=== PATIENT | female | born 1950 | race Caucasian/White ===

== ENCOUNTER 2016-11-11 08:35 | Outpatient (CLI) | payer BC, MEDICARE ==
[2016-11-11 12:39] LABS: #Basophils 0.1 thou/uL (0.0-0.2); #Eosinphils 0.1 thou/uL (0.0-0.7); #Monocytes 0.3 thou/uL (0.11-0.59); #Neutrophils 2.4 thou/uL (1.40-6.50); %Basophils 1.3 % (0.0-1.0); %Eosinophils 2.4 % (0.0-10.0); %Lymphocytes 41.2 % (21.0-51.0); %Monocytes 6.1 % (0.0-10.0); Hematocrit 41.1 % (36.0-47.0); Mean Platelet Volume 5.8 fL (7.4-10.4); Red Blood Cell (RBC) Count 4.21 mill/uL (4.20-5.40); White Blood Cell (WBC) Count 4.9 thou/uL (4.8-10.8)
[2016-11-11 12:50] LABS: ALT (SGPT) 34 U/L (0-55); AST (SGOT) 55 U/L (5-34); Alkaline Phosphatase 61 U/L (40-150); Anion Gap 16 mmol/L (10-20); BUN (Urea Nitrogen) 14 mg/dL (9.8-20.1); Bilirubin, Total 0.4 mg/dL (0.2-1.2); Calc. Creatinine Clearance 0 mL/min (70-130); Calcium 9.4 mg/dL (7.8-10.44); Carbon Dioxide 24 mmol/L (23-31); Chloride 100 mmol/L (98-107); Estimated GFR-MDRD 54; Globulin 2.8 g/dL (2.4-3.5); LDL Cholesterol, Calculated 325 mg/dL; Protein, Total 7.6 g/dL (5.8-8.1)
== END 2016-11-11 08:36 ==
LOC: NAVSJIPCSP 08:35
PROVIDERS: ATTEND Family Medicine
DX: I10 Essential (primary) hypertension (principal); R53.83 Other fatigue
CPT/HCPCS: 36415; 80053; 80061; 84443; 85025

== ENCOUNTER 2021-01-10 13:59 | Inpatient (IN) | payer MEDICARE, BC ==
[2021-01-10] MEDS ORDERED: Cepastat Lozenges 1 LOZ PO PRN ×2 (15:10→15:25)
[2021-01-10] MEDS ORDERED: Acetaminophen 325 MG TAB PO PRN ×2 (15:10→15:21)
[2021-01-10] MEDS ORDERED: diphenhydrAMINE 25 MG CAP PO PRN (15:11)
[2021-01-10] MEDS: HYDROcodone/Acetaminophen 7.5/325 mg Tablet PO PRN ×2 (15:20→19:21)
[2021-01-10] MEDS ORDERED: Ondansetron ODT 4 MG TAB PO PRN (15:21)
[2021-01-10] MEDS ORDERED: HYDROcodone/Acetaminophen 7.5/325 mg Tablet PO PRN ×2 (15:25)
[2021-01-10] MEDS ORDERED: Non-Formulary Item 1 EACH (Acetaminophen [Tylenol] 325 MG Capsule) PO PRN (15:25)
[2021-01-10 16:24] LABS: #Basophils 0.1 thou/uL (0.0-0.2); #Eosinphils 0.1 thou/uL (0.0-0.7); #Lymphocytes 2.3 thou/uL (1.20-3.40); #Monocytes 0.7 thou/uL (0.11-0.59); #Neutrophils 5.2 thou/uL (1.40-6.50); %Basophils 0.7 % (0.0-1.0); %Eosinophils 1.5 % (0.0-10.0); %Lymphocytes 27.9 % (21.0-51.0); %Monocytes 7.9 % (0.0-10.0); %Neutrophils 62.1 % (42.0-75.0); Hemoglobin 10.6 g/dL (12.0-16.0); Mean Corpuscular HGB CONC 30.8 g/dL (32.0-36.0); Mean Corpuscular Hemoglobin 30.6 pg (27.0-31.0); Mean Corpuscular Volume 99.5 fL (78.0-98.0); Mean Platelet Volume 7.6 fL (7.4-10.4); Platelet Count 300 thou/uL (130-400); RBC Distribution Width 12.2 % (11.5-14.5); Red Blood Cell (RBC) Count 3.45 mill/uL (4.20-5.40); White Blood Cell (WBC) Count 8.4 thou/uL (4.8-10.8)
[2021-01-10 16:41] LABS: Anion Gap 12 mmol/L (10-20); BUN (Urea Nitrogen) 11 mg/dL (9.8-20.1); Calc. Creatinine Clearance 108 mL/min (70-130); Calcium 8.7 mg/dL (7.8-10.44); Carbon Dioxide 27 mmol/L (23-31); Chloride 104 mmol/L (98-107); Glucose 92 mg/dL (80-115); Potassium 4.4 mmol/L (3.5-5.1); Sodium 139 mmol/L (136-145)
[2021-01-10] MEDS ORDERED: diphenhydrAMINE 25 MG CAP PO SCH (18:00)
[2021-01-10] MEDS: Rosuvastatin 10 MG TAB PO SCH (20:44)
[2021-01-10] MEDS: Docusate 100 MG CAP PO SCH (20:47)
[2021-01-10] MEDS: Aspirin 81 mg Enteric Coated Tablet PO SCH (20:47)
[2021-01-10] MEDS: cycloSPORINE 0.05% Ophthalmic Droperette EA EYE SCH (20:49)
[2021-01-10] MEDS: Milk Of Magnesia 30 ML UDCUP PO SCH (20:59)
[2021-01-10] MEDS ORDERED: Docusate 100 MG CAP PO SCH (21:00)
[2021-01-10] MEDS ORDERED: Lisinopril 10 MG TAB PO SCH (21:00)
[2021-01-10] MEDS ORDERED: Levothyroxine Sodium 112 MCG TAB PO SCH (21:00)
[2021-01-10] MEDS ORDERED: Aspirin 81 mg Enteric Coated Tablet PO SCH (21:00)
[2021-01-10] MEDS ORDERED: Milk Of Magnesia 30 ML UDCUP PO SCH (21:00)
[2021-01-10] MEDS ORDERED: cycloSPORINE 0.05% Ophthalmic Droperette EA EYE SCH (21:00)
[2021-01-10] MEDS ORDERED: ROSUVASTATIN 5 MG PO SCH (21:00)
[2021-01-10] MEDS ORDERED: Lisinopril 5 MG TAB PO SCH (21:00)
[2021-01-11] MEDS: HYDROcodone/Acetaminophen 7.5/325 mg Tablet PO PRN ×5 (00:42→20:21)
[2021-01-11] MEDS: Levothyroxine Sodium 112 MCG TAB PO SCH (05:31)
[2021-01-11] MEDS: Enoxaparin Sodium 40 MG/0.4 ML SYRINGE SC SCH (08:59)
[2021-01-11] MEDS: Docusate 100 MG CAP PO SCH ×2 (08:59→20:23)
[2021-01-11] MEDS: Aspirin 81 mg Enteric Coated Tablet PO SCH ×2 (08:59→20:24)
[2021-01-11] MEDS: Milk Of Magnesia 30 ML UDCUP PO SCH ×2 (09:00→20:23)
[2021-01-11] MEDS ORDERED: [UNRECOGNIZED DRUG - OTHER] PO SCH (09:00)
[2021-01-11] MEDS: Multivitamin W/ Minerals 1 TAB PO SCH (09:00)
[2021-01-11] MEDS: cycloSPORINE 0.05% Ophthalmic Droperette EA EYE SCH ×2 (09:00→20:20)
[2021-01-11] MEDS: Rosuvastatin 10 MG TAB PO SCH (20:23)
[2021-01-11] MEDS ORDERED: Lisinopril 10 MG TAB PO SCH (21:00)
[2021-01-11] MEDS: Lisinopril 5 MG TAB PO SCH (21:35)
[2021-01-12] MEDS: HYDROcodone/Acetaminophen 7.5/325 mg Tablet PO PRN ×6 (00:12→20:34)
[2021-01-12] MEDS: Levothyroxine Sodium 112 MCG TAB PO SCH (06:12)
[2021-01-12] MEDS: Docusate 100 MG CAP PO SCH ×2 (08:18→20:35)
[2021-01-12] MEDS: Enoxaparin Sodium 40 MG/0.4 ML SYRINGE SC SCH (08:18)
[2021-01-12] MEDS: Aspirin 81 mg Enteric Coated Tablet PO SCH ×2 (08:18→20:35)
[2021-01-12] MEDS: Multivitamin W/ Minerals 1 TAB PO SCH (08:19)
[2021-01-12] MEDS: cycloSPORINE 0.05% Ophthalmic Droperette EA EYE SCH ×2 (08:19→20:34)
[2021-01-12] MEDS: Milk Of Magnesia 30 ML UDCUP PO SCH ×2 (08:19→20:05)
[2021-01-12] MEDS ORDERED: Magnesium Citrate 300 ML BOT PO SCH (09:15)
[2021-01-12] MEDS: Rosuvastatin 10 MG TAB PO SCH (20:35)
[2021-01-12] MEDS: Lisinopril 5 MG TAB PO SCH (20:35)
[2021-01-13] MEDS: HYDROcodone/Acetaminophen 7.5/325 mg Tablet PO PRN ×6 (01:03→22:17)
[2021-01-13] MEDS: Levothyroxine Sodium 112 MCG TAB PO SCH (05:06)
[2021-01-13] MEDS: Milk Of Magnesia 30 ML UDCUP PO SCH ×2 (08:26→20:30)
[2021-01-13] MEDS: Docusate 100 MG CAP PO SCH ×2 (08:27→20:25)
[2021-01-13] MEDS: Multivitamin W/ Minerals 1 TAB PO SCH (08:27)
[2021-01-13] MEDS: Enoxaparin Sodium 40 MG/0.4 ML SYRINGE SC SCH (08:27)
[2021-01-13] MEDS: Aspirin 81 mg Enteric Coated Tablet PO SCH ×2 (08:27→20:26)
[2021-01-13] MEDS: cycloSPORINE 0.05% Ophthalmic Droperette EA EYE SCH ×2 (10:22→20:36)
[2021-01-13 11:53] VITALS: BMI 27.8
[2021-01-13] MEDS: traMADol HCl 50 MG TAB PO PRN (16:24)
[2021-01-13] MEDS: Lisinopril 5 MG TAB PO SCH (20:25)
[2021-01-13] MEDS: Rosuvastatin 10 MG TAB PO SCH (20:26)
[2021-01-14] MEDS: traMADol HCl 50 MG TAB PO PRN ×4 (00:41→23:11)
[2021-01-14] MEDS: HYDROcodone/Acetaminophen 7.5/325 mg Tablet PO PRN ×5 (03:18→23:10)
[2021-01-14] MEDS: Levothyroxine Sodium 112 MCG TAB PO SCH (05:56)
[2021-01-14] MEDS: Enoxaparin Sodium 40 MG/0.4 ML SYRINGE SC SCH (07:55)
[2021-01-14] MEDS: Multivitamin W/ Minerals 1 TAB PO SCH (07:55)
[2021-01-14] MEDS: Docusate 100 MG CAP PO SCH ×2 (07:56→20:25)
[2021-01-14] MEDS: Aspirin 81 mg Enteric Coated Tablet PO SCH ×2 (07:56→20:25)
[2021-01-14] MEDS: cycloSPORINE 0.05% Ophthalmic Droperette EA EYE SCH ×2 (07:58→22:19)
[2021-01-14] MEDS: Milk Of Magnesia 30 ML UDCUP PO SCH ×2 (07:59→22:12)
[2021-01-14] MEDS ORDERED: Ondansetron ODT 4 MG TAB SL PRN (09:15)
[2021-01-14] MEDS: Rosuvastatin 10 MG TAB PO SCH (20:25)
[2021-01-14] MEDS: Lisinopril 5 MG TAB PO SCH (20:25)
[2021-01-15] MEDS: HYDROcodone/Acetaminophen 7.5/325 mg Tablet PO PRN ×4 (03:35→20:28)
[2021-01-15] MEDS: traMADol HCl 50 MG TAB PO PRN ×3 (05:40→18:39)
[2021-01-15] MEDS: Levothyroxine Sodium 112 MCG TAB PO SCH (05:41)
[2021-01-15] MEDS: cycloSPORINE 0.05% Ophthalmic Droperette EA EYE SCH ×3 (08:54→20:35)
[2021-01-15] MEDS: Docusate 100 MG CAP PO SCH ×2 (08:54→20:26)
[2021-01-15] MEDS: Aspirin 81 mg Enteric Coated Tablet PO SCH ×2 (08:54→20:26)
[2021-01-15] MEDS: Milk Of Magnesia 30 ML UDCUP PO SCH ×2 (08:55→20:30)
[2021-01-15] MEDS: Multivitamin W/ Minerals 1 TAB PO SCH (08:55)
[2021-01-15] MEDS: Rosuvastatin 10 MG TAB PO SCH (20:26)
[2021-01-15] MEDS: Lisinopril 5 MG TAB PO SCH (20:27)
[2021-01-16] MEDS: HYDROcodone/Acetaminophen 7.5/325 mg Tablet PO PRN ×6 (00:08→20:53)
[2021-01-16] MEDS: traMADol HCl 50 MG TAB PO PRN ×4 (00:12→20:04)
[2021-01-16] MEDS: Levothyroxine Sodium 112 MCG TAB PO SCH (06:06)
[2021-01-16] MEDS: Multivitamin W/ Minerals 1 TAB PO SCH (08:05)
[2021-01-16] MEDS: Docusate 100 MG CAP PO SCH ×2 (08:05→20:05)
[2021-01-16] MEDS: Aspirin 81 mg Enteric Coated Tablet PO SCH ×2 (08:05→20:07)
[2021-01-16] MEDS: Milk Of Magnesia 30 ML UDCUP PO SCH ×2 (08:05→20:04)
[2021-01-16] MEDS: cycloSPORINE 0.05% Ophthalmic Droperette EA EYE SCH ×2 (08:06→20:08)
[2021-01-16] MEDS: Rosuvastatin 10 MG TAB PO SCH (20:02)
[2021-01-16] MEDS: Lisinopril 5 MG TAB PO SCH (20:05)
[2021-01-17] MEDS: HYDROcodone/Acetaminophen 7.5/325 mg Tablet PO PRN ×3 (01:08→10:36)
[2021-01-17] MEDS: Levothyroxine Sodium 112 MCG TAB PO SCH (05:13)
[2021-01-17] MEDS: traMADol HCl 50 MG TAB PO PRN (08:50)
[2021-01-17] MEDS: Milk Of Magnesia 30 ML UDCUP PO SCH (08:53)
[2021-01-17] MEDS: Aspirin 81 mg Enteric Coated Tablet PO SCH (08:53)
[2021-01-17] MEDS: Docusate 100 MG CAP PO SCH (08:54)
[2021-01-17] MEDS: Multivitamin W/ Minerals 1 TAB PO SCH (08:54)
[2021-01-17] MEDS: cycloSPORINE 0.05% Ophthalmic Droperette EA EYE SCH (08:57)
[2021-01-17 13:54] VITALS: BP 120/62; TEMP 97
== END 2021-01-17 13:15 | disposition home or self-care (01) | DRG 561 ==
LOC: NAV ACUTE 13:59
PROVIDERS: ADMIT Internal Medicine; ATTEND Internal Medicine
DX: Z47.1 Aftercare following joint replacement surgery (principal); E03.9 Hypothyroidism, unspecified; I10 Essential (primary) hypertension; E78.5 Hyperlipidemia, unspecified; K59.00 Constipation, unspecified
CPT/HCPCS: 80048; 85025; J1650

== ENCOUNTER 2023-04-28 13:44 | Outpatient (CLI) | payer MEDICARE, BC ==
[2023-04-28 14:07] LABS: #Basophils 0.1 thou/uL (0.0-0.2); #Eosinphils 0.3 thou/uL (0.0-0.7); #Lymphocytes 1.7 thou/uL (1.20-3.40); #Monocytes 0.4 thou/uL (0.11-0.59); #Neutrophils 3.3 thou/uL (1.40-6.50); %Basophils 1.2 % (0.0-1.0); %Eosinophils 5.7 % (0.0-10.0); %Lymphocytes 29.4 % (21.0-51.0); %Monocytes 7.4 % (0.0-10.0); %Neutrophils 56.4 % (42.0-75.0); Hematocrit 34.3 % (36.0-47.0); Hemoglobin 11.4 g/dL (12.0-16.0); Mean Corpuscular HGB CONC 33.2 g/dL (32.0-36.0); Mean Corpuscular Hemoglobin 31.4 pg (27.0-31.0); Mean Corpuscular Volume 94.8 fl (78.0-98.0); Platelet Count 310 10x3/uL (130-400); RBC Distribution Width 11.8 % (11.5-14.5); Red Blood Cell (RBC) Count 3.62 mill/uL (4.20-5.40); White Blood Cell (WBC) Count 5.8 10x3/uL (4.8-10.8)
[2023-04-28 14:14] LABS: ALT (SGPT) 9 U/L (8-55); AST (SGOT) 21 U/L (5-34); Alkaline Phosphatase 78 U/L (40-110); Anion Gap 16 mmol/L (10-20); BUN (Urea Nitrogen) 24 mg/dL (9.8-20.1); Bilirubin, Total 0.2 mg/dL (0.2-1.2); CRP (Inflammatory) Less than 0.50 mg/dL (= or < 0.5); Calc. Creatinine Clearance 0 mL/min (70-130); Calcium 9.2 mg/dL (7.8-10.44); Carbon Dioxide 24 mmol/L (23-31); Chloride 98 mmol/L (98-107); Estimated GFR 91; Globulin 2.5 g/dL (2.4-3.5); Glucose 86 mg/dL (83-110); Potassium 4.7 mmol/L (3.5-5.1); Protein, Total 6.5 g/dL (5.8-8.1); Sodium 133 mmol/L (136-145)
== END 2023-04-28 13:45 | disposition home or self-care (01) ==
LOC: NAV LABSP 13:44
PROVIDERS: ATTEND Internal Medicine
DX: M00.872 Arthritis due to other bacteria, left ankle and foot (principal); T84.69XA Infection and inflammatory reaction due to internal fixation device of other site, initial encounter
CPT/HCPCS: 36415; 80053; 85025; 86140

== ENCOUNTER 2023-05-05 11:51 | Outpatient (CLI) | payer MEDICARE, BC ==
[2023-05-05 12:26] LABS: #Eosinphils 0.2 thou/uL (0.0-0.7); #Lymphocytes 1.3 thou/uL (1.20-3.40); #Monocytes 0.3 thou/uL (0.11-0.59); #Neutrophils 2.4 thou/uL (1.40-6.50); %Basophils 1.1 % (0.0-1.0); %Eosinophils 5.6 % (0.0-10.0); %Lymphocytes 30.4 % (21.0-51.0); %Monocytes 7.3 % (0.0-10.0); %Neutrophils 55.7 % (42.0-75.0); ALT (SGPT) Less than 7 U/L (8-55); AST (SGOT) 15 U/L (5-34); Albumin 4.2 g/dL (3.4-4.8); Alkaline Phosphatase 71 U/L (40-110); Anion Gap 14 mmol/L (10-20); BUN (Urea Nitrogen) 24 mg/dL (9.8-20.1); Bilirubin, Total 0.2 mg/dL (0.2-1.2); CRP (Inflammatory) Less than 0.50 mg/dL (= or < 0.5); Calc. Creatinine Clearance 0 mL/min (70-130); Calcium 9.3 mg/dL (7.8-10.44); Carbon Dioxide 23 mmol/L (23-31); Chloride 99 mmol/L (98-107); Estimated GFR 82; Globulin 2.3 g/dL (2.4-3.5); Glucose 124 mg/dL (83-110); Hemoglobin 11.2 g/dL (12.0-16.0); Mean Corpuscular HGB CONC 32.9 g/dL (32.0-36.0); Mean Corpuscular Hemoglobin 31.5 pg (27.0-31.0); Mean Corpuscular Volume 95.7 fl (78.0-98.0); Mean Platelet Volume 6.4 fL (7.4-10.4); Platelet Count 296 10x3/uL (130-400); Potassium 4.8 mmol/L (3.5-5.1); Protein, Total 6.5 g/dL (5.8-8.1); RBC Distribution Width 11.5 % (11.5-14.5); Red Blood Cell (RBC) Count 3.56 mill/uL (4.20-5.40); Sodium 131 mmol/L (136-145); White Blood Cell (WBC) Count 4.3 10x3/uL (4.8-10.8)
[2023-05-05 13:53] LABS: Follow-up Chemistry Comp? YES; Follow-up Hematology Comp? YES; Follow-up Result - Chemistry REPORT FAXED; Follow-up Result - Hematology REPORT FAXED
== END 2023-05-05 11:52 | disposition home or self-care (01) ==
LOC: NAV LABSP 11:51
PROVIDERS: ATTEND Internal Medicine
DX: T84.69XA Infection and inflammatory reaction due to internal fixation device of other site, initial encounter (principal); N18.1 Chronic kidney disease, stage 1; B95.61 Methicillin susceptible Staphylococcus aureus infection as the cause of diseases classified elsewhere; M00.872 Arthritis due to other bacteria, left ankle and foot
CPT/HCPCS: 80053; 85025; 86140

== ENCOUNTER 2023-05-12 16:16 | Outpatient (CLI) | payer MEDICARE, BC ==
[2023-05-12 17:24] LABS: #Basophils 0.1 thou/uL (0.0-0.2); #Eosinphils 0.2 thou/uL (0.0-0.7); #Lymphocytes 1.2 thou/uL (1.20-3.40); #Monocytes 0.4 thou/uL (0.11-0.59); #Neutrophils 1.6 thou/uL (1.40-6.50); %Basophils 2.2 % (0.0-1.0); %Eosinophils 5.8 % (0.0-10.0); %Lymphocytes 34.7 % (21.0-51.0); %Monocytes 10.5 % (0.0-10.0); %Neutrophils 46.8 % (42.0-75.0); Hematocrit 32.1 % (36.0-47.0); Hemoglobin 10.6 g/dL (12.0-16.0); Mean Corpuscular HGB CONC 33.1 g/dL (32.0-36.0); Mean Corpuscular Hemoglobin 31.2 pg (27.0-31.0); Mean Corpuscular Volume 94.3 fl (78.0-98.0); Platelet Count 305 10x3/uL (130-400); RBC Distribution Width 11.3 % (11.5-14.5); Red Blood Cell (RBC) Count 3.41 mill/uL (4.20-5.40); White Blood Cell (WBC) Count 3.5 10x3/uL (4.8-10.8)
[2023-05-12 17:40] LABS: ALT (SGPT) Less than 7 U/L (8-55); AST (SGOT) 16 U/L (5-34); Albumin 4.1 g/dL (3.4-4.8); Alkaline Phosphatase 63 U/L (40-110); Anion Gap 13 mmol/L (10-20); BUN (Urea Nitrogen) 17 mg/dL (9.8-20.1); Bilirubin, Total 0.2 mg/dL (0.2-1.2); CRP (Inflammatory) Less than 0.50 mg/dL (= or < 0.5); Calc. Creatinine Clearance 0 mL/min (70-130); Carbon Dioxide 25 mmol/L (23-31); Chloride 94 mmol/L (98-107); Estimated GFR 89; Globulin 2.2 g/dL (2.4-3.5); Glucose 149 mg/dL (83-110); Potassium 4.2 mmol/L (3.5-5.1); Protein, Total 6.3 g/dL (5.8-8.1); Sodium 128 mmol/L (136-145)
== END 2023-05-12 16:17 | disposition home or self-care (01) ==
LOC: NAV LABSP 16:16
PROVIDERS: ATTEND Internal Medicine
DX: T84.69XD Infection and inflammatory reaction due to internal fixation device of other site, subsequent encounter (principal); B95.61 Methicillin susceptible Staphylococcus aureus infection as the cause of diseases classified elsewhere
CPT/HCPCS: 80053; 85025; 86140

== ENCOUNTER 2023-05-19 10:13 | Outpatient (CLI) | payer MEDICARE, BC ==
[2023-05-19 12:09] LABS: #Eosinphils 0.2 thou/uL (0.0-0.7); #Lymphocytes 0.6 thou/uL (1.20-3.40); #Monocytes 0.4 thou/uL (0.11-0.59); #Neutrophils 1.8 thou/uL (1.40-6.50); %Basophils 0.6 % (0.0-1.0); %Eosinophils 7.6 % (0.0-10.0); %Lymphocytes 20.3 % (21.0-51.0); %Monocytes 11.9 % (0.0-10.0); %Neutrophils 59.5 % (42.0-75.0); Hematocrit 33.5 % (36.0-47.0); Hemoglobin 11.2 g/dL (12.0-16.0); Mean Corpuscular HGB CONC 33.4 g/dL (32.0-36.0); Mean Corpuscular Hemoglobin 31.5 pg (27.0-31.0); Mean Corpuscular Volume 94.4 fl (78.0-98.0); Mean Platelet Volume 5.7 fL (7.4-10.4); Platelet Count 251 10x3/uL (130-400); RBC Distribution Width 11.2 % (11.5-14.5); Red Blood Cell (RBC) Count 3.55 mill/uL (4.20-5.40)
[2023-05-19 12:59] LABS: Potassium 4.6 mmol/L (3.5-5.1); Sodium 134 mmol/L (136-145)
[2023-05-19 13:00] LABS: Anion Gap 15 mmol/L (10-20); BUN (Urea Nitrogen) 16 mg/dL (9.8-20.1); Carbon Dioxide 24 mmol/L (23-31); Chloride 100 mmol/L (98-107)
[2023-05-19 13:01] LABS: Calc. Creatinine Clearance 0 mL/min (70-130); Calcium 9.2 mg/dL (7.6-10.4); Estimated GFR 79; Glucose 87 mg/dL (83-110)
[2023-05-19 13:02] LABS: Albumin 4.3 g/dL (3.4-4.8); Bilirubin, Total 0.2 mg/dL (0.2-1.2); Globulin 2.4 g/dL (2.4-3.5); Protein, Total 6.7 g/dL (5.8-8.1)
[2023-05-19 13:04] LABS: AST (SGOT) 19 U/L (5-34); Alkaline Phosphatase 63 U/L (40-110)
[2023-05-19 13:05] LABS: ALT (SGPT) Less than 7 U/L (8-55)
[2023-05-19 13:06] LABS: CRP (Inflammatory) Less than 0.50 mg/dL (= or < 0.5)
[2023-05-20 06:09] LABS: Follow-up Chemistry Comp? YES; Follow-up Hematology Comp? YES; Follow-up Result - Chemistry REPORT FAXED; Follow-up Result - Hematology REPORT FAXED
== END 2023-05-19 10:14 | disposition home or self-care (01) ==
LOC: NAV LABSP 10:13
PROVIDERS: ATTEND Internal Medicine
DX: T84.69XD Infection and inflammatory reaction due to internal fixation device of other site, subsequent encounter (principal); B95.61 Methicillin susceptible Staphylococcus aureus infection as the cause of diseases classified elsewhere
CPT/HCPCS: 80053; 85025; 86140

== ENCOUNTER 2023-05-26 15:15 | Outpatient (CLI) | payer MEDICARE, BC ==
[2023-05-26 15:41] LABS: #Eosinphils 0.4 thou/uL (0.0-0.7); #Lymphocytes 0.5 thou/uL (1.20-3.40); #Monocytes 0.3 thou/uL (0.11-0.59); #Neutrophils 1.7 thou/uL (1.40-6.50); %Basophils 1.7 % (0.0-1.0); %Eosinophils 12.6 % (0.0-10.0); %Lymphocytes 16.2 % (21.0-51.0); %Monocytes 10.7 % (0.0-10.0); %Neutrophils 58.8 % (42.0-75.0); Hematocrit 32.1 % (36.0-47.0); Hemoglobin 10.9 g/dL (12.0-16.0); Mean Corpuscular Hemoglobin 32.2 pg (27.0-31.0); Mean Corpuscular Volume 94.7 fl (78.0-98.0); Mean Platelet Volume 6.8 fL (7.4-10.4); Platelet Count 192 10x3/uL (130-400); RBC Distribution Width 11.3 % (11.5-14.5); Red Blood Cell (RBC) Count 3.38 mill/uL (4.20-5.40); White Blood Cell (WBC) Count 2.8 10x3/uL (4.8-10.8)
[2023-05-26 15:50] LABS: ALT (SGPT) 20 U/L (8-55); AST (SGOT) 57 U/L (5-34); Albumin 3.9 g/dL (3.4-4.8); Alkaline Phosphatase 123 U/L (40-110); Anion Gap 18 mmol/L (10-20); BUN (Urea Nitrogen) 11 mg/dL (9.8-20.1); Bilirubin, Total 0.2 mg/dL (0.2-1.2); CRP (Inflammatory) 2.36 mg/dL (= or < 0.5); Calc. Creatinine Clearance 0 mL/min (70-130); Calcium 8.5 mg/dL (7.8-10.44); Carbon Dioxide 19 mmol/L (23-31); Chloride 92 mmol/L (98-107); Estimated GFR 80; Globulin 2.2 g/dL (2.4-3.5); Glucose 201 mg/dL (83-110); Potassium 4.2 mmol/L (3.5-5.1); Protein, Total 6.1 g/dL (5.8-8.1); Sodium 125 mmol/L (136-145)
== END 2023-05-26 15:16 | disposition home or self-care (01) ==
LOC: NAV LABSP 15:15
PROVIDERS: ATTEND Internal Medicine
DX: T84.69XD Infection and inflammatory reaction due to internal fixation device of other site, subsequent encounter (principal); B95.61 Methicillin susceptible Staphylococcus aureus infection as the cause of diseases classified elsewhere
CPT/HCPCS: 80053; 85025; 86140